=== PATIENT | female | born 1960 | race African-American/Black ===

== ENCOUNTER 2021-06-26 18:30 | Emergency (ER) | payer BC ==
[2021-06-26 18:37] VITALS: TEMP 97.5; BMI 29.2
[2021-06-26] MEDS ORDERED: ASPIRIN 81 MG CHEWABLE TABLETS PO ONE (19:56)
[2021-06-26] MEDS ORDERED: LACTATED RINGERS SOLUTION 1000 ML INFUS.BAG IV ONE (19:56)
[2021-06-26] MEDS ORDERED: FAMOTIDINE 20 MG/50 ML IVPB 20 MG/50 ML MG IVPB ONE ×2 (19:56→20:04)
[2021-06-26] MEDS ORDERED: MAG HYDROX/AL HYDROX/SIMETH 30 ML UNIT-DOSE CUP PO ONE (19:56)
[2021-06-26] MEDS ORDERED: ASPIRIN 81 MG CHEWABLE TABLETS ONE (20:03)
[2021-06-26] MEDS ORDERED: MAG HYDROX/AL HYDROX/SIMETH 30 ML UNIT-DOSE CUP ONE (20:03)
[2021-06-26 20:38] LABS: BASO % 0.7 % (0-2.0); EOS % 1.5 % (0-4.5); HEMATOCRIT 40.1 % (32.4-45.2); HEMOGLOBIN 13.1 GM/dL (10.7-15.3); LYMPH % 28.9 % (8-40); MCH 26.1 pg (25.7-33.7); MCHC 32.6 g/dl (32.0-36.0); MEAN CELL VOLUME 80.3 fl (80-96); MEAN PLT VOLUME 7.6 fl (7.5-11.1); MONO % 7.9 % (3.8-10.2); PLATELET COUNT 212 10^3/uL (134-434); RDW 14.5 % (11.6-15.6); WHITE BLOOD COUNT 7.5 K/mm3 (4.0-10.0)
[2021-06-26 20:46] LABS: INR 1.12 (0.83-1.09); PROTHROMBIN TIME (PATIENT) 12.9 SEC (9.7-13.0)
[2021-06-26 20:48] LABS: ACTIVATED PTT 33.9 SECONDS (25.2-36.5)
[2021-06-26 20:55] LABS: CALCIUM 9.8 mg/dL (8.5-10.1); MAGNESIUM 2.2 mg/dL (1.8-2.4)
[2021-06-26 20:56] LABS: BLOOD UREA NITROGEN 11.3 mg/dL (7-18)
[2021-06-26 20:58] LABS: CREATININE 0.9 mg/dL (0.55-1.3)
[2021-06-26 21:00] LABS: TOT PROT 7.5 g/dl (6.4-8.2)
[2021-06-26 21:01] LABS: BILIRUBIN,TOTAL 0.4 mg/dL (0.2-1)
[2021-06-26 21:55] VITALS: BP 146/76; PULSE 62
== END 2021-06-26 21:55 | disposition home or self-care (01) ==
LOC: JER 18:30
PROC: 3E033GC Introduction of Other Therapeutic Substance into Peripheral Vein, Percutaneous Approach (ICD-10-PCS; principal; 2021-06-26)
DX: R10.13 Epigastric pain (principal)
CPT/HCPCS: 36415; 71046-TC-FY; 80053; 82550; 83690; 83735; 84484; 85025; 85610; 85730; 93005; 93010; 99285-25

== ENCOUNTER 2022-05-13 18:48 | Emergency (ER) | payer OTHER, BC ==
[2022-05-13 19:35] VITALS: BP 158/93; PULSE 53; RESP 18; TEMP 97.6; BMI 29.2
[2022-05-13] MEDS ORDERED: KETOROLAC TROMETHAMINE 30 MG/1 ML VIAL IM ONE (20:18)
[2022-05-13] MEDS ORDERED: LIDOCAINE 5% TOPICAL PATCH TP ONE (20:18)
[2022-05-13] MEDS ORDERED: CYCLOBENZAPRINE HCL 10 MG TABLET (FP) PO ONE (20:18)
[2022-05-13] MEDS ORDERED: LIDOCAINE 5% TOPICAL PATCH ONE (20:23)
[2022-05-13] MEDS ORDERED: KETOROLAC TROMETHAMINE 30 MG/1 ML VIAL ONE (20:23)
[2022-05-13] MEDS ORDERED: CYCLOBENZAPRINE HCL 10 MG TABLET (FP) ONE (20:23)
[2022-05-13] MEDS ORDERED: LIDOCAINE PATCH REMOVAL MC SCH (22:00)
== END 2022-05-13 22:54 | disposition home or self-care (01) ==
LOC: JER 18:48 → JERFT 18:48
PROC: 3E0233Z Introduction of Anti-inflammatory into Muscle, Percutaneous Approach (ICD-10-PCS; principal; 2022-05-13)
DX: S16.1XXA Strain of muscle, fascia and tendon at neck level, initial encounter (principal); S29.012A Strain of muscle and tendon of back wall of thorax, initial encounter; V89.2XXA Person injured in unspecified motor-vehicle accident, traffic, initial encounter
CPT/HCPCS: 71046-TC-FY; 72050-TC-FY; 99284-25